=== PATIENT | male | born 1980 | race Caucasian/White ===

== ENCOUNTER 2017-01-26 00:14 | Inpatient (IN) | payer MEDICAID, OTHER ==
[~2017-01-26] VITALS: Ht 182.9 cm; Wt 91.3 kg
[~2017-01-26 00:14] MED LIST: NOCURR
[2017-01-26 00:56] LABS: ANION GAP 9 mmol/L (8-16); CALCIUM, TOTAL 8.4 mg/dL (8.8-10.5); CARBON DIOXIDE 27 mmol/L (22-29); CHLORIDE 107 mmol/L (98-107); CREATININE 0.94 mg/dL (0.60-1.30); GLOMERULAR FILTR. RATE CALC > 60 mL/min (>60); POTASSIUM 3.4 mmol/L (3.5-5.1); SODIUM SERUM 143 mmol/L (136-145); UREA NITROGEN, BLOOD 15 mg/dL (7-18)
[2017-01-26 00:57] LABS: BASOPHILS % (AUTO) 0.7 % (0.0-2.0); EOSINOPHILS % (AUTO) 1.9 % (1.0-6.0); HEMATOCRIT 38.5 % (41-53); HEMOGLOBIN 13.5 g/dL (13.5-17.5); LYMPHOCYTES # (AUTO) 3.9 K/uL (1.0-4.8); LYMPHOCYTES % (AUTO) 43.6 % (22.0-44.0); MEAN CORPUSCULAR HEMOGLOBIN 33.1 pg (26.0-34.0); MEAN CORPUSCULAR VOLUME 94 fL (80-100); MONOCYTES # (AUTO) 0.8 K/uL (0.1-1.0); MONOCYTES % (AUTO) 8.3 % (2.0-9.0); NEUTROPHILS # (AUTO) 4.1 K/uL (1.8-7.7); NEUTROPHILS % (AUTO) 45.5 % (40.0-70.0); PLATELET COUNT (AUTO) 261 K/uL (150-450); RED BLOOD CELL COUNT(AUTO) 4.08 MIL/uL (4.50-5.90); RED CELL DISTRIBUTION WIDTH 13.2 % (11.5-14.5); WHITE BLOOD COUNT (AUTO) 9.1 K/uL (4.5-11.0)
[2017-01-26 01:02] LABS: ALANINE AMINOTRANSFERASE 50 U/L (12-78); ALBUMIN 3.6 g/dL (3.4-5.0); ASPARTATE AMINOTRANSFERASE 44 U/L (15-37); BILIRUBIN,TOTAL 0.4 mg/dL (0.1-1.0); TOTAL PROTEIN, SERUM 6.9 g/dL (6.4-8.2)
[2017-01-26] MEDS ORDERED: POTASSIUM CHLORIDE 10% 40 MEQ/30 ML LIQUID UDCUP PO ONE (02:00)
[2017-01-26] MEDS ORDERED: ZOLPIDEM TARTRATE 10 MG TABLET PO PRN (05:00)
[2017-01-26] MEDS ORDERED: OLANZapine 5 MG RAPDIS TABLET PO PRN (05:00)
[2017-01-26] MEDS ORDERED: LORazepam 2 MG TABLET PO PRN (05:00)
[2017-01-26 05:51] LABS: CHOL/HDL RATIO 8.6 (4.2-7.3); THYROID STIMULATING HORMONE 2.78 uIU/mL (0.36-3.74)
[2017-01-26] MEDS ORDERED: MAG HYDROX/AL HYDROX/SIMETH ES 30 ML SUSPENSION UDCUP PO PRN (16:45)
[2017-01-26] MEDS ORDERED: HydrOXYzine PAMOATE 50 MG CAPSULE PO PRN (16:45)
[2017-01-26] MEDS ORDERED: ACETAMINOPHEN 325 MG TABLET PO PRN (16:45)
[2017-01-26] MEDS ORDERED: PROMETHAZINE HCL 25 MG TABLET PO PRN (16:45)
[2017-01-26] MEDS ORDERED: MAGNESIUM HYDROXIDE SUSPENSION 30 ML UDCUP PO PRN (16:45)
[2017-01-26] MEDS ORDERED: LOPERAMIDE HCL 2 MG CAPSULE PO PRN (16:45)
[2017-01-26] MEDS ORDERED: DIAZEPAM 10 MG TABLET PO PRN (16:45)
[2017-01-26] MEDS ORDERED: CYANOCOBALAMIN 1,000 MCG/ML VIAL IM ONE (16:45)
[2017-01-26] MEDS ORDERED: GuaiFENesin/D-METHORPHAN [SUGAR-FREE] 200-20MG/10 ML SYRUP UDCUP PO PRN (16:45)
[2017-01-26 17:00] VITALS: BP 135/92
[2017-01-26] MEDS: THIAMINE HCL 100 MG TABLET PO SCH (17:58)
[2017-01-26 18:00] VITALS: BP 131/89
[2017-01-26 19:00] VITALS: BP 133/87
[2017-01-26 20:00] VITALS: BP 130/86
[2017-01-26] MEDS: OLANZapine 10 MG RAPDIS TABLET PO SCH (21:56)
[2017-01-27 04:02] VITALS: BP 117/72
[2017-01-27] MEDS ORDERED: DIAZEPAM 10 MG TABLET PO PRN (07:00)
[2017-01-27 08:05] VITALS: BP 125/71
[2017-01-27] MEDS: FLUoxetine HCL 20 MG CAPSULE PO SCH (08:50)
[2017-01-27] MEDS: THIAMINE HCL 100 MG TABLET PO SCH ×2 (08:50→17:31)
[2017-01-27] MEDS: MULTIVITAMINS WITH MINERALS, THERAPEUTIC TABLET PO SCH (08:50)
[2017-01-27] MEDS: NALTREXONE HCL 50 MG TABLET PO SCH (08:50)
[2017-01-27] MEDS: FOLIC ACID 1 MG TABLET PO SCH (08:50)
[2017-01-27] MEDS: DIAZEPAM 10 MG TABLET PO SCH ×4 (09:00→20:15)
[2017-01-27] MEDS ORDERED: EMTR1TAB12 PO (11:30)
[2017-01-27] MEDS ORDERED: FLUO-191 PO (12:04)
[2017-01-27] MEDS ORDERED: NALT50TA PO (12:04)
[2017-01-27 12:10] VITALS: BP 128/72
[2017-01-27] MEDS: OLANZapine 10 MG RAPDIS TABLET PO SCH (20:15)
[2017-01-28 06:24] VITALS: BP 112/66
[2017-01-28 08:15] VITALS: BP 116/82
[2017-01-28] MEDS: FLUoxetine HCL 20 MG CAPSULE PO SCH (08:41)
[2017-01-28] MEDS: MULTIVITAMINS WITH MINERALS, THERAPEUTIC TABLET PO SCH (09:00)
[2017-01-28] MEDS: NALTREXONE HCL 50 MG TABLET PO SCH (09:00)
[2017-01-28] MEDS: THIAMINE HCL 100 MG TABLET PO SCH (09:00)
[2017-01-28] MEDS: FOLIC ACID 1 MG TABLET PO SCH (09:00)
[2017-01-28] MEDS: DIAZEPAM 10 MG TABLET PO SCH ×2 (09:00→13:00)
[2017-01-29] MEDS ORDERED: DIAZEPAM 5 MG TABLET PO PRN (07:00)
[2017-01-29] MEDS ORDERED: DIAZEPAM 5 MG TABLET PO SCH (09:00)
[2017-01-29] MEDS ORDERED: LOPERAMIDE HCL 2 MG CAPSULE PO PRN (16:45)
[2017-01-30] MEDS ORDERED: DIAZEPAM 5 MG TABLET PO PRN (07:00)
== END 2017-01-28 10:00 | disposition home or self-care (01) | DRG 750 ==
LOC: EMS 00:17 → AHU 16:00 → 3EC 16:51
PROVIDERS: ADMIT Psychiatry & Neurology Psychiatry; ATTEND Psychiatry & Neurology Psychiatry
DX: F25.0 Schizoaffective disorder, bipolar type (principal); R45.851 Suicidal ideations; Z91.19 Patient's noncompliance with other medical treatment and regimen; I10 Essential (primary) hypertension; E78.5 Hyperlipidemia, unspecified; E78.00 Pure hypercholesterolemia, unspecified; E87.6 Hypokalemia; Z72.89 Other problems related to lifestyle; Z71.41 Alcohol abuse counseling and surveillance of alcoholic; Z20.6 Contact with and (suspected) exposure to human immunodeficiency virus [HIV]
CPT/HCPCS: 84443; 93005; 99285; G0480; J3420

== ENCOUNTER 2020-09-23 11:09 | Inpatient (IN) | payer MEDICAID ==
[~2020-09-23] VITALS: Ht 182.9 cm; Wt 94.7 kg
[~2020-09-23 11:09] MED LIST changes: +EMTR1TAB12 PO; +FLUO-191 PO; +NALT50TA PO; -NOCURR
[2020-09-23] MEDS ORDERED: BUPR75 PO (11:18)
[2020-09-23 12:14] LABS: AMPHET/METH SCREEN,URINE POSITIVE (NEGATIVE); BARBITURATE SCREEN, URINE NEGATIVE (NEGATIVE); BENZODIAZEPINES SCREEN,URINE NEGATIVE (NEGATIVE); CANNABINOID SCREEN,URINE NEGATIVE (NEGATIVE); COCAINE SCREEN,URINE NEGATIVE (NEGATIVE); METHADONE SCREEN, URINE NEGATIVE (NEGATIVE); OPIATE SCREEN,URINE NEGATIVE (NEGATIVE); PHENCYCLIDINE SCREEN,URINE NEGATIVE (NEGATIVE)
[2020-09-23 12:47] LABS: COVID AG,FIA SOURCE NASOPHARYNGEAL
[2020-09-23] MEDS ORDERED: DiphenhydrAMINE HCL 50 MG/ML VIAL ONE (12:55)
[2020-09-23] MEDS ORDERED: LORazepam 2 MG/ML VIAL ONE (12:55)
[2020-09-23] MEDS ORDERED: HALOPERIDOL LACTATE 5 MG/ML VIAL ONE (12:55)
[2020-09-23] MEDS ORDERED: DiphenhydrAMINE HCL 50 MG/ML VIAL IM ONE (13:00)
[2020-09-23] MEDS ORDERED: LORazepam 2 MG/ML VIAL IM ONE (13:00)
[2020-09-23] MEDS ORDERED: HALOPERIDOL LACTATE 5 MG/ML VIAL IM ONE (13:00)
[2020-09-23] MEDS ORDERED: BUPR100SR PO (13:01)
[2020-09-23] MEDS ORDERED: ZOLPIDEM TARTRATE 10 MG TABLET PO PRN (13:45)
[2020-09-23] MEDS ORDERED: LORazepam 2 MG TABLET PO PRN (13:45)
[2020-09-23] MEDS ORDERED: HALOPERIDOL 5 MG TABLET PO PRN (13:45)
[2020-09-23 15:41] LABS: BASOPHILS % (AUTO) 0.7 % (0.0-2.0); EOSINOPHILS % (AUTO) 0.8 % (1.0-6.0); HEMATOCRIT 38.4 % (41-53); HEMOGLOBIN 13.3 g/dL (13.5-17.5); LYMPHOCYTES # (AUTO) 2.6 K/uL (1.0-4.8); LYMPHOCYTES % (AUTO) 35.6 % (22.0-44.0); MEAN CORPUSCULAR HEMOGLOBIN 33.3 pg (26.0-34.0); MEAN CORPUSCULAR HGB CONC 34.7 G/dL (31.0-37.0); MEAN CORPUSCULAR VOLUME 96 fL (80-100); MONOCYTES # (AUTO) 0.4 K/uL (0.1-1.0); MONOCYTES % (AUTO) 5.8 % (2.0-9.0); NEUTROPHILS # (AUTO) 4.2 K/uL (1.8-7.7); NEUTROPHILS % (AUTO) 57.1 % (40.0-70.0); PLATELET COUNT (AUTO) 265 K/uL (150-450); RED CELL DISTRIBUTION WIDTH 13.4 % (11.5-14.5)
[2020-09-23 15:54] LABS: ANION GAP 10 mmol/L (8-16); CALCIUM, TOTAL 8.1 mg/dL (8.8-10.5); CARBON DIOXIDE 22 mmol/L (22-29); CHLORIDE 106 mmol/L (98-107); CREATININE 1.18 mg/dL (0.60-1.30); GLOMERULAR FILTR. RATE CALC > 60 mL/min (>60); GLUCOSE,RANDOM 93 mg/dL (70-110); POTASSIUM 3.6 mmol/L (3.5-5.1); SODIUM SERUM 138 mmol/L (136-145); UREA NITROGEN, BLOOD 15 mg/dL (7-18)
[2020-09-23 15:59] LABS: ALANINE AMINOTRANSFERASE 29 U/L (12-78); ALBUMIN 3.6 g/dL (3.4-5.0); ALKALINE PHOSPHATASE 112 U/L (46-116); ASPARTATE AMINOTRANSFERASE 29 U/L (15-37); BILIRUBIN,TOTAL 0.2 mg/dL (0.1-1.0); TOTAL PROTEIN, SERUM 6.8 g/dL (6.4-8.2)
[2020-09-24 03:35] VITALS: BP 126/85
[2020-09-24 06:03] LABS: CHOL/HDL RATIO 7.6 (4.2-7.3); CHOLESTEROL 265 mg/dL (131-200); HDL CHOLESTEROL 35 mg/dL (40-60); TRIGLYCERIDES 452 mg/dL (15-150)
[2020-09-24] MEDS ORDERED: [UNRECOGNIZED DRUG - OTHER] PO SCH (07:30)
[2020-09-24] MEDS ORDERED: PETROLATUM,WHITE 28 GM JELLY TP PRN (07:30)
[2020-09-24] MEDS ORDERED: NICOTINE 14 MG/24 HOUR PATCH TD PRN (07:30)
[2020-09-24] MEDS ORDERED: ACETAMINOPHEN 325 MG TABLET PO PRN (07:30)
[2020-09-24] MEDS ORDERED: MAG HYDROX/AL HYDROX/SIMETH ES 30 ML SUSPENSION UDCUP PO PRN (07:30)
[2020-09-24] MEDS ORDERED: ONDANSETRON HCL 4 MG TABLET PO PRN (07:30)
[2020-09-24] MEDS ORDERED: LOPERAMIDE HCL 2 MG CAPSULE PO PRN (07:30)
[2020-09-24] MEDS ORDERED: DOCUSATE SODIUM 100 MG CAPSULE PO PRN (07:30)
[2020-09-24] MEDS ORDERED: MAGNESIUM HYDROXIDE SUSPENSION 30 ML UDCUP PO PRN (07:30)
[2020-09-24] MEDS ORDERED: ALBUTEROL SULFATE HFA 90 MCG/PUFF 8 GM INHALER IH PRN (07:30)
[2020-09-24] MEDS ORDERED: IBUPROFEN 400 MG TABLET PO PRN (07:30)
[2020-09-24] MEDS ORDERED: CloNIDine HCL 0.1 MG TABLET PO PRN (07:30)
[2020-09-24] MEDS ORDERED: GuaiFENesin/D-METHORPHAN [SUGAR-FREE] 200-20MG/10 ML SYRUP UDCUP PO PRN (07:30)
[2020-09-24 08:00] VITALS: BP 111/72
[2020-09-24 19:17] VITALS: BP 125/89
[2020-09-25 08:00] VITALS: BP 123/85
[2020-09-25] MEDS: NALTREXONE HCL 50 MG TABLET PO SCH (08:50)
[2020-09-25] MEDS: BuPROPion HCL XL 150 MG ER TABLET PO SCH (08:50)
[2020-09-25 17:47] VITALS: BP 123/86
[2020-09-26] MEDS: BuPROPion HCL XL 150 MG ER TABLET PO SCH (08:34)
[2020-09-26] MEDS: NALTREXONE HCL 50 MG TABLET PO SCH (08:34)
[2020-09-26 09:30] VITALS: BP 116/81
[2020-09-26] MEDS ORDERED: BUPR-93 PO (11:29)
== END 2020-09-26 12:15 | disposition home or self-care (01) | DRG 753 ==
LOC: EMS 11:11 → 3EC 09-24 02:51
PROVIDERS: ADMIT Psychiatry & Neurology Child & Adolescent Psychiatry; ATTEND Psychiatry & Neurology Child & Adolescent Psychiatry
DX: F31.30 Bipolar disorder, current episode depressed, mild or moderate severity, unspecified (principal); R45.851 Suicidal ideations; Z78.1 Physical restraint status; E78.00 Pure hypercholesterolemia, unspecified; I10 Essential (primary) hypertension; D64.9 Anemia, unspecified; F10.10 Alcohol abuse, uncomplicated; Z20.822 Contact with and (suspected) exposure to COVID-19; Z91.14 Patient's other noncompliance with medication regimen
CPT/HCPCS: 80053; 80061; 85025; 99291; G0480; J1200; J1630; J2060